=== PATIENT | female | born 1950 | race Caucasian/White ===

== ENCOUNTER 2022-04-15 03:37 | Emergency (ER) | payer MEDICARE, SELFPAY ==
[2022-04-15 03:46] VITALS: BP 193/67; PULSE 114; RESP 20; TEMP 37; O2SAT 99; BMI 36.3
--- NOTE | 2022-04-15 03:50 | ED_ITS ---
HPI - Allergic Reaction General Chief complaint: Allergic Reaction Stated complaint: allergic rx? 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 ate a [employer] had beef but there is seafood at restaurant) Symptoms: rash, itching, facial swelling and vomiting Severity: moderate Treatment prior to arrival: none Previous Allergic Reaction History: other (shrimp) Related Data Allergies Allergy/AdvReac Type Severity Reaction Status Date / Time acetaminophen [From FIORICET] Allergy Unknown RASH Unverified 07/25/20 15:16 butalbital [From FIORICET] Allergy Unknown RASH Unverified 07/25/20 15:16 caffeine [From FIORICET] Allergy Unknown RASH Unverified 07/25/20 15:16 Review of Systems Review of Systems: Constitutional : No Weight loss, No Fever, No Chills ENT/Mouth : No sore throat, No Rhinorrhea Eyes: No Swelling, No Redness Cardiovascular : No Chest Pain, No SOB, NoEdema Respiratory : No Cough, No Sputum, No Wheezing Gastrointestinal : Positive Nausea, Positive Vomiting, no Diarrhea, no abdominal Pain, No Hematochezia, No Melena Genitourinary : No Dysuria, No Urinary Frequency, No Hematuria, No Urgency Musculoskeletal : No joint pain, No Myalgias, No Joint Swelling Skin : No Skin Lesions, pos rash Neuro : No Weakness, No Numbness, No Dizziness, No Headache Psych : No Anxiety/Panic, No Depression Heme/Lymph: No Bruising, No Lymphadenopathy Endocrine : No Polyuria, No Polydipsia All other systems reviewed and are negative. [facility] Past Medical History Medical History Diabetes Surgical History Hx of cholecystectomy Social History Social History (Updated 04/15/22 @ 03:59 by Angela Houston DO) Patient Tobacco Use Status: Never used Tobacco Advance Directives: No Physical Exam ED Vital Signs: Vital Signs - 24 hr 04/15/22 03:46 04/15/22 06:38 Temperature 98.6 F 98.2 F Pulse Rate 114 H 76 Respiratory Rate 20 16 Blood Pressure 193/67 H 123/59 L Pulse Oximetry 99 93 Oxygen Delivery Method Room Air Room Air BMI result Body Mass Index 36.3 Appearance: Alert. Oriented X3. No acute distress. Eyes: Pupils equal, round and reactive to light. ENT: Pharynx normal. no angioedema, facial flushing and erythema to both cheeks Neck: Normal inspection. Neck supple. CVS: Normal heart rate and rhythm. Pulses normal. Respiratory: No respiratory distress. Breath sounds normal. Abdomen: Soft and nontender. Skin: Skin warm and dry. Normal skin color. Normal skin turgor. Extremities: No lower extremity edema. No calf ttp Neuro: Oriented X 3. No motor deficit. No sensory deficit. Course Course Course Narrative: nausea resolved, feels better, itching gone, wants to go home Rx for zofran given in paper form would not go through electronically after down time MDM - Allergic Reaction MDM Narrative Medical decision making narrative: 71 yo female with hx of DM, here with c/o facial flushing and itching to abdomen woke up with vomiting - did eat a restaurant that has seafood - she ate beef but her symptoms of vomiting, itching, facial swelling around the cheeks are concerning for allergic reaction. Her abdominal exam is benign. Will obtain basic labs, IVF, zofran and treat histamine symptoms with benadryl, pepcid and steroids. Will observe for clinical improvement. No airway issues. Lab Data Result diagrams: 04/15/22 03:50 Labs: Lab Results 04/15/22 04/15/22 Range/Units 03:50 03:58 WBC 10.7 (4.8-10.8) X10*3/uL RBC 3.85 L (4.20-5.50) X10*6/uL Hgb 11.6 L (12.0-16.0) g/dl Hct 35.4 L (37.0-47.0) % MCV 91.9 (80.0-98.0) fL MCH 30.1 (27.0-33.0) pg MCHC 32.8 (31.0-35.0) g/dl RDW 13.6 (11.0-16.0) % Plt Count 268 (160-400) X10*3/uL MPV 10.2 (9.4-12.3) fL Immature Gran % (Auto) 0.5 H (0.0-0.4) % Neut % (Auto) 70.2 (45-73) % Lymph % (Auto) 21.0 (20-40) % Mercer % (Auto) 6.8 (2-11) % Eos % (Auto) 1.0 (0-4) % Baso % (Auto) 0.5 (0-2) % Lymph # (Auto) 2.2 (1.2-4.9) X10*3/uL Mercer # (Auto) 0.7 (0.1-1.2) X10*3/uL Eos # (Auto) 0.1 (0.0-0.4) X10*3/uL Baso # (Auto) 0.1 (0.0-0.2) X10*3/uL Abs Immat Gran (auto) 0.05 H (0.00-0.03) X10*3/uL Absolute Neuts (auto) 7.5 (2.0-8.3) x10*3/uL Absolute Nucleated RBC 0.000 (0.0-0.012) X10*3/uL Nucleated RBC % (auto) 0.0 (0.0-0.2) /100WBC COVID-19 (ARIELLA) Negative (Negative) COVID-19 Clin Com See Note Discharge Plan Discharge Clinical Impression: Allergic reaction, Vomiting Patient Disposition: Home, Self-Care Instructions: Acute Nausea and Vomiting (ED), General Allergic Reaction (ED) Additional Instructions: return to ED for any worsening symptoms or concerns take benadryl PRN as needed 25mg every 6 hours for itching can also take pepcid tonight if you have itching over the counter 20mg
[2022-04-15] MEDS: diphenhydrAMINE HCL 50 MG/ML VIAL 25 MG IVPUSH (03:56)
[2022-04-15] MEDS: methylPREDNISolone Sod Succ 125 MG/2 ML VIAL IVPUSH (03:56)
[2022-04-15] MEDS: Famotidine/PF 20 MG/2 ML VIAL IVPUSH (03:56)
[2022-04-15] MEDS: ondansetron HCL 4 MG/2 ML VIAL IVPUSH (03:56)
[2022-04-15] MEDS: 0.9 % Sodium Chloride 1,000 ML 999 ML IVCONT (03:57)
[2022-04-15 06:31] LABS: Basophils Absolute Auto 0.1 X10*3/uL (0.0-0.2); Basophils Percent Auto 0.5 % (0-2); Eosinophils Absolute Auto 0.1 X10*3/uL (0.0-0.4); Hematocrit 35.4 % (37.0-47.0); Hemoglobin 11.6 g/dl (12.0-16.0); Imm Gran Abs Auto 0.05 X10*3/uL (0.00-0.03); Imm Gran Pct Auto 0.5 % (0.0-0.4); Lymphocytes Absolute Auto 2.2 X10*3/uL (1.2-4.9); MANUAL DIFF FLAG NO; Mean Corpuscular HGB Conc 32.8 g/dl (31.0-35.0); Mean Corpuscular Hemoglobin 30.1 pg (27.0-33.0); Mean Corpuscular Volume 91.9 fL (80.0-98.0); Mean Platelet Volume 10.2 fL (9.4-12.3); Monocytes Absolute Auto 0.7 X10*3/uL (0.1-1.2); Monocytes Percent Auto 6.8 % (2-11); Neutrophils Absolute Auto 7.5 x10*3/uL (2.0-8.3); Neutrophils Percent Auto 70.2 % (45-73); Platelet Count 268 X10*3/uL (160-400); Red Blood Count 3.85 X10*6/uL (4.20-5.50); Red Cell Distribution Width 13.6 % (11.0-16.0); White Blood Count 10.7 X10*3/uL (4.8-10.8)
[2022-04-15 06:32] LABS: COVID-19 Test Negative (Negative)
[2022-04-15 06:38] VITALS: BP 123/59; PULSE 76; RESP 16; TEMP 36.8; O2SAT 93
[2022-04-15 06:50] LABS: Creatinine Clr Calc Pharmacy 50.3; Estimated Glomerular Filt Rate 48
[2022-04-15 07:05] LABS: Alanine Aminotransferase 17 U/L (0-31); Albumin Level 4.4 g/dL (3.5-5.0); Alkaline Phosphatase 40 U/L (39-117); Anion Gap 17 (12-20); Aspartate Amino Transferase 15 U/L (5-31); Bilirubin Direct 0.3 mg/dL (0.0-0.5); Bilirubin Total 0.9 mg/dL (0.0-1.0); Blood Urea Nitrogen 32 mg/dL (9-16); Calcium 9.7 mg/dL (8.4-10.2); Carbon Dioxide 20 mmol/L (22-29); Chloride 106 mmol/L (96-108); Glucose Random 179 mg/dL (60-115); Lipase 44 U/L (8-78); Magnesium 1.6 mg/dL (1.6-2.6); Potassium 3.9 mmol/L (3.3-5.1); Sodium 139 mmol/L (135-145); Total Protein 7.3 g/dL (6.5-8.0)
== END 2022-04-15 06:53 | disposition home or self-care (01) ==
PROVIDERS: Emergency Provider Emergency Medicine; PCP Family Medicine
DX: T78.40XA Allergy, unspecified, initial encounter (principal); R23.2 Flushing; X58.XXXA Exposure to other specified factors, initial encounter; R11.10 Vomiting, unspecified; Z20.822 Contact with and (suspected) exposure to COVID-19
CPT/HCPCS: 80048; 80076; 83690; 83735; 85025; 87635; 96361; 96374; 96375; 99283; 99284; J1200; J2405; J2930